=== PATIENT | female | born 1975 | race Caucasian/White ===

== ENCOUNTER 2017-10-11 08:08 | Day surgery (SDC) | payer OTHER ==
[~2017-10-11] VITALS: Ht 154.9 cm; Wt 52.6 kg
[~2017-10-11 08:08] MED LIST: EXCETAB80 PO; MUCI600T31 PO; VITA100072 PO
[2017-10-11] MEDS ORDERED: LR 1,000 ML IV ONE (08:30)
[2017-10-11] MEDS ORDERED: fentaNYL 100 MCG/2 ML INJECTION (J3010) As Ordered ONE (09:49)
[2017-10-11] MEDS ORDERED: LIDOCAINE 2% INJ 100 MG/5 ML SDV (FOR ANES.) As Ordered ONE (09:49)
[2017-10-11] MEDS ORDERED: dexameTHASONE 4 MG/ML 1ML VIAL (J1100) As Ordered ONE ×2 (09:49→10:43)
[2017-10-11] MEDS ORDERED: ONDANSETRON 4MG/2ML VIAL (J2405) As Ordered ONE (09:49)
[2017-10-11] MEDS ORDERED: KETOROLAC 60 MG/2 ML VIAL (J1885) As Ordered ONE (09:49)
[2017-10-11] MEDS ORDERED: PROPOFOL 200 MG/20 ML VIAL As Ordered ONE (09:49)
[2017-10-11] MEDS ORDERED: MIDAZOLAM INJ 2 MG/2 ML VIAL (J2250) As Ordered ONE (09:50)
[2017-10-11] MEDS ORDERED: ePHEDrine SULFATE 25 MG/5 ML(5MG/ML) SYRINGE As Ordered ONE (10:06)
[2017-10-11] MEDS ORDERED: LIDOCAINE 1% MDV 20ML VIAL As Ordered ONE (10:43)
[2017-10-11] MEDS ORDERED: BUPIVACAINE HCL 0.5% 10 ML VIAL As Ordered ONE (10:43)
[2017-10-11] MEDS ORDERED: HYDR-3713 PO (13:03)
[2017-10-11] MEDS ORDERED: NORCO, ANEXSIA 5/325MG TABLET (HYDROcodone/ACETAMINOPHEN) PO PRN (14:00)
[2017-10-11] MEDS ORDERED: LR 1,000 ML IV SCH (14:00)
[2017-10-11] MEDS ORDERED: ONDANSETRON 4MG/2ML VIAL (J2405) IV PRN (14:00)
[2017-10-11 14:10] VITALS: BP 156/88
--- NOTE | 2017-10-11 14:15 | RO ---
DATE OF PROCEDURE: 10/11/2017 PREPROCEDURE DIAGNOSIS: Right foot bunion. POSTPROCEDURE DIAGNOSIS: Right foot bunion. PROCEDURE: Right foot bunionectomy, first metatarsal osteotomy. SURGEON: Dr. Pascual Garcia GENETICS TEACHER: None. ANESTHESIA: Monitored anesthesia care. Preoperative injection of 20 mL of 1:1 mixture of 1% lidocaine plain and 0.5% Marcaine plain. ESTIMATED BLOOD LOSS: Minimal. MATERIALS: Arthrex 3.5 headless screw, #3-0 and #4-0 Vicryl, #4-0 nylon. INJECTABLES: 1 mL of Decadron, 4 mg/mL. COMPLICATIONS: None. CONDITION: Stable. DESCRIPTION OF PROCEDURE: Xuan Alfaro is a 41-year-old female who presents to [facility] with complaints of painful bunion to her right foot. She presents today for surgical correction. The patient site and side were identified and marked in the preoperative area. Consent was reviewed and obtained. The risks, complications and alternatives to the procedure were explained to the patient in detail. All questions were answered. The patient was brought to the operating room and placed on the operating room in supine position. Monitored anesthesia care was provided by the anesthesia department. Preoperative injection of 20 mL of 1:1 mixture of 1% lidocaine plain and 0.5% Marcaine plain were injected to the right foot. The right foot was prepped and draped in normal sterile fashion. A tourniquet was applied to the right ankle. The patient received Ancef 2 mg preoperatively. The tourniquet was inflated to 225 mmHg. A dorsal medial incision was drawn and carried through with #15 blade. Dissection was carried down to the metatarsophalangeal joint capsule. Bovie was used to maintain hemostasis. T capsulotomy was performed, exposing the metatarsal head. Lateral release was then performed releasing the adductor tendon, lateral capsule, and sesamoidal ligaments. McGlamry elevator was used to free the plantar structures. Following this the medial eminence was resected from the first metatarsal head and then osteotomy was performed transposing the metatarsal head laterally. This was fixated with an Arthrex 3.5 headless screw. Remaining bone ledge was resected with sagittal saw and smoothed with a rasp. The site was irrigated with normal saline. A small wedge of capsule was removed from the medial capsule and this was repaired with #3-0 Vicryl, subcutaneous closure with #4-0 Vicryl and skin closure with #4-0 nylon. 1 mL of Decadron was injected. Sterile dressing was applied. The tourniquet was deflated. The patient was brought to the postanesthesia care unit (PACU) with vital signs stable and neurovascular status intact. She will be partial weight bearing of the right foot. She will follow up in the office in two days. VERNA
== END 2017-10-11 14:18 | disposition home or self-care (01) ==
LOC: M SDC 08:08
PROVIDERS: ATTEND Podiatrist Foot & Ankle Surgery
DX: M20.11 Hallux valgus (acquired), right foot (principal); F41.9 Anxiety disorder, unspecified; J44.9 Chronic obstructive pulmonary disease, unspecified; Z79.899 Other long term (current) drug therapy; F17.210 Nicotine dependence, cigarettes, uncomplicated
CPT/HCPCS: 28296; 88300; 97116; C1713

== ENCOUNTER → 2018-05-03 | Outpatient (REF) | payer OTHER | LOC: M LAB REF 14:58 | DX: R30.0 Dysuria (principal) ==

== ENCOUNTER → 2018-06-14 | Outpatient (REF) | payer OTHER ==
[2018-06-14 19:42] LABS: APPEARANCE, URINE HAZY (CLEAR); BACTERIA, URINE AUTO 1+ (NEGATIVE); BILIRUBIN, URINE AUTO NEGATIVE (NEGATIVE); BLOOD, URINE BLOOD NEGATIVE (NEGATIVE); CALCIUM OXALATE CRYSTALS SMALL; COLOR, URINE YELLOW (YELLOW); GLUCOSE, URINE (UA) AUTO NEGATIVE (NEGATIVE); KETONE, URINE AUTO NEGATIVE (NEGATIVE); LEUKOCYTE ESTERASE, URINE AUTO TRACE (NEGATIVE); MUCUS, URINE SMALL (NEGATIVE); NITRITE, URINE AUTO NEGATIVE (NEGATIVE); PROTEIN, URINE AUTO NEGATIVE (NEGATIVE); RBC, URINE AUTO 2 /HPF (0-3); SPECIFIC GRAVITY URINE AUTO 1.023 (1.002-1.035); SQUAMOUS EPITHELIAL CELL UR AU 5 /HPF (0-6); WBC, URINE AUTO 5 /HPF (0-3)
== END ==
LOC: M SMT 17:00
DX: R30.0 Dysuria (principal)
CPT/HCPCS: 81001

== ENCOUNTER → 2021-04-14 | Outpatient (CLI) | payer OTHER ==
[~2021-04-14] MED LIST changes: +HYDR-3713 PO; +VITA100018 PO; -VITA100072 PO
--- NOTE | 2021-04-14 17:37 | REP ---
INDICATION: ANOSMIA. COMPARISON: NONE. TECHNIQUE: Helical scanning is acquired and 3 mm axial images re-formatted. Coronal MPR images are generated and reviewed. FINDINGS: The frontal sinuses are hypoplastic. Ethmoid air cells are clear. There is mild mucosal thickening in the inferior aspect of the left side of the sphenoid sinus. Minimal mucosal thickening is seen inferiorly in the maxillary sinuses. Mastoid aeration is normal and symmetric. Middle ear cavities are aerated bilaterally. No intraorbital mass is seen. Visualized intracranial structures are unremarkable. Deep facial soft tissues are unremarkable. Bony nasal septum bows very slightly to the right without a visible beak. 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 Ostiomeatal complexes are patent bilaterally with minimal mucosal thickening at the ostium on the right. The patient is edentulous. No bony destructive lesion is seen. IMPRESSION: Mild mucosal changes in the maxillary sinuses and left sphenoid sinus as above. Mucosal thickening at the ostium of the right [facility]. 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 <Electronically signed by Jairo Gillespie > 04/14/21 [id number]
== END ==
LOC: M RAD 16:01
PROVIDERS: ATTEND Specialist
DX: R43.0 Anosmia (principal)

== ENCOUNTER 2023-03-17 09:02 | Day surgery (SDC) | payer OTHER ==
[~2023-03-17] VITALS: Ht 154.9 cm; Wt 57.6 kg
[~2023-03-17 09:02] MED LIST changes: +CYAN1000VL IM; +EXCETAB32 PO; +HYDR-3363 PO; +NOXI1TAB PO; +NS 1,000 ML IV ONE; +OMEP40CA5 PO; +[UNRECOGNIZED DRUG - OTHER]; +fentaNYL 100 MCG/2 ML INJECTION As Ordered ONE; +propofoL 500 MG/50 ML VIAL As Ordered ONE
[2023-03-17] MEDS ORDERED: LIDOCAINE 2% 100MG/5ML SDV (FOR ANES.) As Ordered ONE (09:45)
[2023-03-17] MEDS ORDERED: ONDANSETRON 4MG 2ML VIAL As Ordered ONE (10:38)
[2023-03-17 12:45] VITALS: BP 160/91
== END 2023-03-17 11:45 | disposition home or self-care (01) ==
LOC: M OPP 09:02
PROVIDERS: ATTEND Internal Medicine Gastroenterology
DX: Z12.11 Encounter for screening for malignant neoplasm of colon (principal); K63.5 Polyp of colon; K57.30 Diverticulosis of large intestine without perforation or abscess without bleeding; K64.4 Residual hemorrhoidal skin tags; K64.8 Other hemorrhoids; K22.89 Other specified disease of esophagus; K29.70 Gastritis, unspecified, without bleeding; J43.8 Other emphysema; Z79.1 Long term (current) use of non-steroidal anti-inflammatories (NSAID); Z79.899 Other long term (current) drug therapy; Z87.891 Personal history of nicotine dependence
CPT/HCPCS: 43239; 45380; 88305; J2405; J3010

== ENCOUNTER → 2023-06-06 | Outpatient (CLI) | payer OTHER ==
[~2023-06-06] MED LIST changes: +E-Z-GAS II EFFERVESCENT PACKET (SODIUM BICARB./CITRIC ACID/SIMETHICONE) As Ordered ONE; +E-Z-HD 98% w/w 340GM SUSP BTL As Ordered ONE; +E-Z-PAQUE 96% w/w SUSP 176GM BTL As Ordered ONE; -NS 1,000 ML IV ONE; -fentaNYL 100 MCG/2 ML INJECTION As Ordered ONE; -propofoL 500 MG/50 ML VIAL As Ordered ONE
== END ==
LOC: M RAD 09:54
PROVIDERS: ATTEND Internal Medicine Gastroenterology
DX: R63.4 Abnormal weight loss (principal)

== ENCOUNTER 2024-06-13 11:53 | Emergency (ER) | payer OTHER, SELFPAY ==
[~2024-06-13] VITALS: Ht 154.9 cm; Wt 55.5 kg
[~2024-06-13 11:53] MED LIST changes: -E-Z-GAS II EFFERVESCENT PACKET (SODIUM BICARB./CITRIC ACID/SIMETHICONE) As Ordered ONE; -E-Z-HD 98% w/w 340GM SUSP BTL As Ordered ONE; -E-Z-PAQUE 96% w/w SUSP 176GM BTL As Ordered ONE
[2024-06-13 13:10] LABS: BASO % 0.5 % (0.0-1.0); EOS # 0.1 10^3/uL (0.0-0.5); EOS % 1.5 % (0.0-3.0); HEMATOCRIT 43.5 % (36.0-47.0); HEMOGLOBIN 14.5 g/dl (12.0-15.5); LYMPH # 2.3 10^3/uL (1.5-5.0); MEAN CORPUSCULAR HEMOGLOBIN 31.7 pg (27.0-33.0); MEAN CORPUSCULAR HGB CONC 33.3 g/dl (32.0-36.5); MONO # 0.5 10^3/uL (0.0-0.8); MONO % 6.5 % (2.0-8.0); NEUTROPHILS # 4.4 10^3/uL (1.5-8.5); NEUTROPHILS % 60.2 % (36.0-66.0); PLATELET COUNT, AUTOMATED 233 10^3/uL (150-450); RED BLOOD COUNT 4.58 10^6/uL (4.00-5.40); WHITE BLOOD COUNT 7.4 10^3/uL (4.0-10.0)
[2024-06-13 13:39] LABS: LIPASE 40 U/L (12-53)
[2024-06-13 13:41] LABS: ALBUMIN 3.9 G/DL (3.2-5.2); ALKALINE PHOSPHATASE 65 U/L (46-116); ALT/SGPT 13 U/L (7.0-40); AST/SGOT < 8 U/L (<34); BILIRUBIN,DIRECT 0.2 MG/DL (<0.4); BILIRUBIN,TOTAL 0.7 MG/DL (0.3-1.2); BLOOD UREA NITROGEN 8 MG/DL (9-23); CARBON DIOXIDE LEVEL 29 MMOL/L (20-31); CHLORIDE LEVEL 106 MMOL/L (98-107); CREATININE FOR GFR 0.67 MG/DL (0.55-1.30); GLOMERULAR FILTRATION RATE > 60.0 (>58); GLUCOSE, FASTING 95 MG/DL (60-100); POTASSIUM SERUM 4.3 MMOL/L (3.5-5.1); SODIUM LEVEL 139 MMOL/L (136-145); TOTAL PROTEIN 6.6 G/DL (5.7-8.2)
[2024-06-13] MEDS: NS 1,000 ML IV ONE (15:10)
[2024-06-13] MEDS: KETOROLAC 30 MG/ML 1ML VIAL IV ONE (15:10)
[2024-06-13 17:12] VITALS: BP 168/87; TEMP 97.8; O2SAT 99
== END 2024-06-13 17:13 | disposition home or self-care (01) ==
LOC: M ED 11:53
DX: N83.202 Unspecified ovarian cyst, left side (principal); F17.200 Nicotine dependence, unspecified, uncomplicated; J44.9 Chronic obstructive pulmonary disease, unspecified; F41.9 Anxiety disorder, unspecified; Z79.82 Long term (current) use of aspirin; Z79.899 Other long term (current) drug therapy
CPT/HCPCS: 74019; 76856; 80048; 80076; 81001; 83690; 85025; 93976; 96361; 96374; 99284; J1885